=== PATIENT | female | born 1950 | race Caucasian/White ===

== ENCOUNTER 2017-04-18 23:33 | Inpatient (IN) | payer OTHER, MEDICAID ==
[~2017-04-18] VITALS: Ht 162.6 cm; Wt 57.2 kg
--- NOTE | 2017-04-18 23:40 | NUR ---
TO BED 1 BIB PARAMEDICS C/O BLOOD NOTED ON COLOSTOMY NOTED. PT AAOX4 NO ACUTE DISTRESS NOTED, RESP EVEN AND UNLABORED. PLACE PT ON CARDIAC MONITORING, CONTINUOUS POX. ER MD AT BEDSIDE TO EVAL PT WITH ORDERS RECEIVED. SL 20G TO R HAND SOFTWARE PACKAGING ENGINEER. WILL CARRY OUT ORDERS.
[2017-04-19] VITALS (16 sets, daily range): BP systolic 72–96; BP diastolic 35–81
[2017-04-19 00:20] LABS: BASOPHILS % (AUTO) 0.4 % (0.0-2.0); EOSINOPHILS % (AUTO) 1.4 % (0.0-6.0); HEMATOCRIT 30 % (33-45); HEMOGLOBIN 10.2 g/dL (11.5-14.8); LYMPHOCYTES # (AUTO) 1.3 /CMM (0.8-4.8); LYMPHOCYTES % (AUTO) 37.5 % (20.0-44.0); MEAN CORPUSCULAR HEMOGLOBIN 38 PG (26.0-33.0); MEAN CORPUSCULAR HGB CONC 34 g/dl (31.0-36.0); MEAN CORPUSCULAR VOLUME 111 fL (82-100); MONOCYTES # (AUTO) 0.3 /CMM (0.1-1.30); MONOCYTES % (AUTO) 10.4 % (2.0-12.0); NEUTROPHILS # (AUTO) 1.7 /CMM (1.8-8.9); NEUTROPHILS % (AUTO) 50.3 % (43.0-81.0); PLATELET COUNT (AUTO) 122 /CMM (150-450); RDW COEFFICIENT OF VARIATION 15.3 (11.5-15.0); RED BLOOD CELL COUNT(AUTO) 2.71 MIL/uL (4.0-5.2); WHITE BLOOD COUNT (AUTO) 3.4 K/uL (4.3-11.0)
[2017-04-19] MEDS ORDERED: ONDANSETRON HCL/PF 4 MG/2 ML VIAL ONE (00:25)
[2017-04-19 00:26] LABS: INR 1.36 (0.87-1.13); PROTHROMBIN TIME 14.2 SECS (9.5-12.7)
[2017-04-19] MEDS ORDERED: ONDANSETRON HCL/PF 4 MG/2 ML VIAL IV ONE ×2 (00:30)
--- NOTE | 2017-04-19 00:30 | NUR ---
PT AT BEDSIDE.
[2017-04-19] MEDS ORDERED: [UNRECOGNIZED DRUG - REMARK] (00:33)
[2017-04-19] MEDS ORDERED: SPIR25TA PO (00:33)
[2017-04-19] MEDS ORDERED: FURO-145 PO (00:33)
--- NOTE | 2017-04-19 00:37 | NUR ---
PT TRANSPORTED TO RADIOLOGY FOR CT ABD/PELVIS.
[2017-04-19 00:44] LABS: CALCIUM, SERUM 8.5 mg/dL (8.5-10.1); CARBON DIOXIDE 27 mmol/L (21-32); CHLORIDE 99 mmol/L (98-107); CREATININE 0.8 mg/dL (0.6-1.3); GLUCOSE 146 mg/dL (74-106); POTASSIUM 3.9 mmol/L (3.5-5.1); SODIUM SERUM 132 mmol/L (136-145); UREA NITROGEN, BLOOD 13 mg/dL (7-18)
[2017-04-19 00:49] LABS: TROPONIN I < 0.017 ng/mL (0.00-0.056)
--- NOTE | 2017-04-19 00:53 | NUR ---
PT BACK FROM RADIOLOGY. PENDING CT ABD/PELVIS RESULT.
[2017-04-19 00:59] LABS: ALANINE AMINOTRANSFERASE 37 U/L (12-78); ALBUMIN 2.6 g/dL (3.4-5.0); ALKALINE PHOSPHATASE 103 U/L (46-116); ASPARTATE AMINOTRANSFERASE 44 U/L (15-37); BILIRUBIN,DIRECT 0.3 mg/dL (0.0-0.2); BILIRUBIN,TOTAL 0.8 mg/dL (0.2-1.0); LIPASE 193 U/L (73-393); TOTAL PROTEIN, SERUM 6.8 g/dL (6.4-8.2)
[2017-04-19] MEDS ORDERED: IV NS 0.9% 1,000 ML BAG IV ONE ×2 (01:30)
[2017-04-19] MEDS ORDERED: GELATIN SPONGE,ABSORBABLE 1 SPONGE SPONGE TP ONE ×2 (02:03→02:30)
--- NOTE | 2017-04-19 02:10 | NUR ---
REPORT CALLED TO TELE 1 RN. ER MD SPOKE TO DR. MUNOZ REGARDING PT ADMISSION. WILL TRANSPORT PT VIA ACLS PROTOCOL.
[2017-04-19] MEDS ORDERED: PIPERACILLIN /TAZOBACTAM 3.375 G VIAL IV ONE (02:13)
[2017-04-19] MEDS ORDERED: PIPERACILLIN /TAZOBACTAM 3.375 G in IV D5W 50 ML IV ONE (02:30)
[2017-04-19] MEDS ORDERED: ACETAMINOPHEN 325 MG TABLET PO PRN (03:00)
[2017-04-19] MEDS ORDERED: IV D5/ 0.9% NACL 1,000 ML IV PRN (03:00)
[2017-04-19] MEDS ORDERED: ONDANSETRON HCL/PF 4 MG/2 ML VIAL IV PRN (03:00)
[2017-04-19] MEDS ORDERED: ZOLPIDEM TARTRATE 5 MG TABLET PO PRN (03:00)
--- NOTE | 2017-04-19 03:00 | NUR ---
KIMMY/RN NOTES: RECEIVED PT. VIA [facility] TO ROOM # 114-1 W/ ADMITTING DX. OF GI BLEED. A/O X 4. RA SAT 100%. DENIES ANY C/O CHEST PAIN OR ANY DISCOMFORT AT PRESENT. PT. REMAINS NPO STATUS. HAS IVF GOING VIA # 20 PATENT AND INTACT W/ NO S/S OF INFECTION/INFILTRATION NOTED. CONTINENT W/ BPR. HAS COLOSTOMY. CALL LIGHT W/REACH. ALL NEEDS MEET. WILL CONTINUE TO MONITOR. HAS H/H Q 6 HRS.
[2017-04-19] MEDS ORDERED: PANTOPRAZOLE 40 MG VIAL ONE (04:01)
[2017-04-19] MEDS: PANTOPRAZOLE 40 MG VIAL IV SCH ×3 (04:04→16:44)
--- NOTE | 2017-04-19 06:59 | NUR ---
KIMMY/RN NOTES: PT. IN BED SLEEPING W/ RESPIRATION EVEN AND UNLABORED. DENIES ANY PAIN OR DISCOMFORT AT THIS TIME. NOT IN ANY ACUTE DISTRESS NOTED. REPORT GIVEN TO NEXT SHIFT NURSE FOR TSERING.
[2017-04-19] MEDS ORDERED: SOFO400T PO (07:05)
[2017-04-19] MEDS ORDERED: DACL60TA PO (07:05)
--- NOTE | 2017-04-19 07:10 | NUR ---
RN NOTES RECEIVED PATIENT AOX4 , DENIES SOB AND DISCOMFORT AT THIS TIME SPO2 OF 100% VIA RA , SR 85 ON FURNACE REPAIR MECHANIC , COLOSTOMY BAG @ LLQ NOTED WITH BROWNISH YELLOW OUTPUT , NO BLEEDING NOTED , IV OF R HAND # 20 WITH D5NS @ 100ML/HR INFUSING WELL , ALL NEEDS ATTENDED , BED ON LOW AND LOCKED POSITION , SIDE RAILS X2 CALL LIGHT WITHIN REACH , HOB @ 35 , WILL CONTINUE TO MONITOR
[2017-04-19 07:35] LABS: BASOPHILS % (AUTO) 0.4 % (0.0-2.0); EOSINOPHILS # (AUTO) 0.1 /CMM (0.0-0.7); HEMATOCRIT 25 % (33-45); HEMOGLOBIN 8.4 g/dL (11.5-14.8); LYMPHOCYTES # (AUTO) 1.3 /CMM (0.8-4.8); LYMPHOCYTES % (AUTO) 39.1 % (20.0-44.0); MEAN CORPUSCULAR HEMOGLOBIN 38 PG (26.0-33.0); MEAN CORPUSCULAR HGB CONC 34 g/dl (31.0-36.0); MEAN CORPUSCULAR VOLUME 109 fL (82-100); MONOCYTES # (AUTO) 0.3 /CMM (0.1-1.30); NEUTROPHILS # (AUTO) 1.6 /CMM (1.8-8.9); NEUTROPHILS % (AUTO) 48.5 % (43.0-81.0); PLATELET COUNT (AUTO) 94 /CMM (150-450); RED BLOOD CELL COUNT(AUTO) 2.24 MIL/uL (4.0-5.2); WHITE BLOOD COUNT (AUTO) 3.4 K/uL (4.3-11.0)
[2017-04-19 07:45] LABS: CALCIUM, SERUM 7.9 mg/dL (8.5-10.1); CREATININE 0.6 mg/dL (0.6-1.3); POTASSIUM 3.9 mmol/L (3.5-5.1)
[2017-04-19 07:52] LABS: INR 1.35 (0.87-1.13); PROTHROMBIN TIME 14.1 SECS (9.5-12.7)
--- NOTE | 2017-04-19 08:27 | NUR ---
RN NOTES DR MUNOZ AT BEDSIDE, SEEN AND EVALUATED THE PATIENT , DISCUSSED LABS , BP OF 88/40 , AFEBRILE , NO ACTIVE BLEEDING AT COLOSTOMY BAG , PER MD GIVE 2 UNITS PRBC AND START PT ON REGULAR DIET , DC H/H Q6 AND REPEAT H/H AFTER 2 UNITS PRBC AND CALL HIM FOR THE RESULT , MAY BE DISCHARGE TO DAY DEPENDS ON H/H LEVEL
--- NOTE | 2017-04-19 08:28 | NUR ---
RN NOTES 2 UNITS PRBC ORDERED PER STANDING ORDER , VERIFIED BLOOD TRANSFUSION CONSENT ON CASI CHART , PT SIGNED BT CONSENT , WILL CONTINUE TO MONITOR
--- NOTE | 2017-04-19 08:29 | NUR ---
RN NOTES DR MUNOZ SPOKE TO DR WELLS REGARDING PLAN FO CARE . NO PLAN FOR EGD
[2017-04-19 08:57] LABS: LYMPHOCYTES % (MANUAL) 42 % (16-48); MONOCYTES % (MANUAL) 7 % (0-11.0); NEUTROPHILS % (MANUAL) 51 (42-76)
[2017-04-19] MEDS ORDERED: HYDROMORPHONE 1 MG/1 ML DISP.SYRIN ONE (09:02)
[2017-04-19] MEDS: HYDROMORPHONE INJ 2 MG/ML DISP.SYRIN IV PRN ×2 (09:04→21:45)
--- NOTE | 2017-04-19 11:31 | NUR ---
RN NOTES PT STABLE PRIOR TO BT , BP OF 72/42 , AFEBRILE , VERIFIED 1 UNIT PRBC WITH ANOTHER RN ALBERT, TAMARA CONSENT SIGNED , WILL MONITOR PT FOR ANY TRANSFUSION REACTION AFTER 15 MINUTES
--- NOTE | 2017-04-19 11:44 | NUR ---
RN NOTES PT STABLE AFTER 15 MINUTES INITIATING BLOOD TRANSFUSION , NO TRANSFUSION REACTION NOTED , DENIES ANY DISCOMFORT AND SOB AT THIS TIME , WILL CONTINUE TO MONITOR
--- NOTE | 2017-04-19 13:59 | NUR ---
RN NOTES SECOND UNIT OF PRBC GIVEN , PT IS STABLE AT THIS TIME , V/S STABLE , VERIFIED BLOOD WITH BARRY RN , WILL CONTINUE TO MONITOR
--- NOTE | 2017-04-19 14:15 | NUR ---
RN NOTES PT STABLE POST 15 MINUTES OF SECOND PRBC , NO TRANSFUSION REACTION NOTED , V/S LELA , WILL CONTINUE TO MONITOR
[2017-04-19 17:31] LABS: HEMOGLOBIN 9.8 g/dL (11.5-14.8)
--- NOTE | 2017-04-19 19:11 | NUR ---
RN NOTES SPOKE WITH DR MELENDEZ AND DR MUNOZ , DISCUSSED THE PT WAS STABLE FOR DISCHARGE , UPON REMOVING COLOSTOMY BAG , PT STARTED BLEEDING WITH SMALL AMOUNT OF BLOOD , APPLIED PRESSURE FOR AT LEAST 15-20 MINUTES, BLEEDING STOPPED AND APPLIED COLOSTOMY BAG , WILL HOLD DISCHARGE FOR NOW , BOTH MD AGREED TO HOLD DC , DR MELENDEZ WILL SEE THE PT AT MIDNIGHT
--- NOTE | 2017-04-19 19:30 | NUR ---
RN NOTES REPORT GIVEN TO Sharyn HARDIN/U MEDICATION RECON TO BE REVIEWED AND CONTINUED BY , PT IS TAKING ANTI VIRAL DRUG FOR HEP C , COLOSTOMY SITE NO BLEEDING NOTED , PT DENIES DIZZINESS AND DISCOMFIT AT THIS TIME .
--- NOTE | 2017-04-19 20:22 | NUR ---
RN MS INITIAL NOTES RECEIVED PATIENT AOX4 , DENIES SOB AND DISCOMFORT AT THIS TIME SPO2 OF 100% VIA RA , SR 62 ON RESTAURANT HOST , COLOSTOMY BAG @ LLQ NOTED WITH BROWNISH YELLOW OUTPUT , NO BLEEDING NOTED , ENDORSED BY AM SHIFT WITH EPISODE OF BLEEDING IN THE COLOSTOMY, WILL CONT TO MONITOR, MD TO SEE PT PER AM NURSE BY MD NIGHT. IV OF R HAND # 20 IV D5NS @ 100ML/HR DC , BP TRENDING ON LOW , BUT ENDORSED THAT IT IS NORMAL FOR PT.ALL NEEDS ATTENDED , BED ON LOW AND LOCKED POSITION , SIDE RAILS X2 CALL LIGHT WITHIN REACH , HOB @ 35 , WILL CONTINUE TO MONITOR
--- NOTE | 2017-04-19 23:20 | NUR ---
PT SEEN BY DR ALIYAH MELENDEZ ASSESSED SITE [facility] [place] FOR DC IF H&H NORMAL.
--- NOTE | 2017-04-19 23:51 | NUR ---
DR MUNOZ CALLED TO F/U ON DR ALIYAH MELENDEZ VISIT, EXPLAINED MD DUNBAR TO DC PT IN AM IF H&H OK. REQUESTED TO ENDORSE PT FOR DC WITH FEROUS SULFATE 325 MG 1 TAB PO BID, SUPPLEMENT FOR ANEMIA.
[2017-04-20] VITALS: BP 90/50
[2017-04-20 00:53] LABS: HEMOGLOBIN 10.6 g/dL (11.5-14.8)
[2017-04-20 04:00] VITALS: BP 78/48
--- NOTE | 2017-04-20 06:14 | NUR ---
RN MS CLOSING NOTES PT STABLE THROUGH SHIFT, DR ALEXANDER DUNBAR FOR DC IF AM H&H OK. MIDNIGHT H&H 10.6, WILL ENDORSE FOR AM NURSE TO F/U. PT FOR HIDA SCAN IN AM, WELL POSSIBLE EGD AND COLONOSCOPY. ALL PT NEEDS MET, CALL LIGHT WITH REACH.
[2017-04-20 07:27] LABS: BASOPHILS % (AUTO) 1.2 % (0.0-2.0); EOSINOPHILS # (AUTO) 0.1 /CMM (0.0-0.7); EOSINOPHILS % (AUTO) 2.1 % (0.0-6.0); HEMATOCRIT 32 % (33-45); HEMOGLOBIN 10.7 g/dL (11.5-14.8); LYMPHOCYTES # (AUTO) 1.5 /CMM (0.8-4.8); LYMPHOCYTES % (AUTO) 45.4 % (20.0-44.0); MEAN CORPUSCULAR HEMOGLOBIN 36 PG (26.0-33.0); MEAN CORPUSCULAR HGB CONC 34 g/dl (31.0-36.0); MEAN CORPUSCULAR VOLUME 105 fL (82-100); MONOCYTES # (AUTO) 0.3 /CMM (0.1-1.30); MONOCYTES % (AUTO) 8.8 % (2.0-12.0); NEUTROPHILS # (AUTO) 1.4 /CMM (1.8-8.9); NEUTROPHILS % (AUTO) 42.5 % (43.0-81.0); PLATELET COUNT (AUTO) 91 /CMM (150-450); RED BLOOD CELL COUNT(AUTO) 3.01 MIL/uL (4.0-5.2); WHITE BLOOD COUNT (AUTO) 3.2 K/uL (4.3-11.0)
[2017-04-20 07:49] LABS: CALCIUM, SERUM 8.2 mg/dL (8.5-10.1); CREATININE 0.7 mg/dL (0.6-1.3); MAGNESIUM 1.7 mg/dL (1.8-2.4); PHOSPHORUS 3.2 mg/dL (2.5-4.9); POTASSIUM 3.9 mmol/L (3.5-5.1)
[2017-04-20 08:00] VITALS: BP 87/51
[2017-04-20 08:34] LABS: EOSINOPHILS % (MANUAL) 2 % (0-4); LYMPHOCYTES % (MANUAL) 41 % (16-48); MONOCYTES % (MANUAL) 6 % (0-11.0); NEUTROPHILS % (MANUAL) 51 (42-76)
[2017-04-20] MEDS: PANTOPRAZOLE 40 MG VIAL IV SCH (08:38)
[2017-04-20] MEDS ORDERED: Magnesium 1GM/D5W 100ML PREMIX 100 ML IV SCH (09:38)
--- NOTE | 2017-04-20 10:00 | NUR ---
RN NOTE PT DISCHARGED HOME WITH VIA OWN TRANSPORTATION, DR MUNOZ NOTIFIED ABOUT HEMOGLOBIN LEVEL AND NEED TO FOLLOW UP WITH DR MELENDEZ IS EMPHASIZED REGARDING COLOSTOMY CARE AND GI CONSULTATION FOR COLONOSCOPY. EXIT CARE DONE, PT REFUSED VACCINATION. DISCHARGE PAPERS SIGNED, INSTRUCTIONS GIVEN REGARDING IRON SUPPLEMENT RECOMMENDED BY DR MUNOZ. TEACHING DONE TO PT, PATIENT VERBALIZED UNDERSTANDING. PT LEFT IN STABLE CONDITION.
== END 2017-04-20 10:21 | disposition home or self-care (01) | DRG 394 ==
LOC: ER 23:35 → TELE1 04-19 02:29 → TELE-TD 04-19 02:57 → MEDSG1 04-19 11:21
PROVIDERS: ADMIT Internal Medicine; ATTEND Internal Medicine
PROC: 30233N1 Transfusion of Nonautologous Red Blood Cells into Peripheral Vein, Percutaneous Approach (ICD-10-PCS; principal; 2017-04-19)
DX: K94.01 Colostomy hemorrhage (principal); D62 Acute posthemorrhagic anemia; I95.89 Other hypotension; R18.8 Other ascites; K80.10 Calculus of gallbladder with chronic cholecystitis without obstruction; E44.1 Mild protein-calorie malnutrition; K74.60 Unspecified cirrhosis of liver; Y83.3 Surgical operation with formation of external stoma as the cause of abnormal reaction of the patient, or of later complication, without mention of misadventure at the time of the procedure; Y82.9 Unspecified medical devices associated with adverse incidents; Y92.009 Unspecified place in unspecified non-institutional (private) residence as the place of occurrence of the external cause; B19.20 Unspecified viral hepatitis C without hepatic coma; Z79.899 Other long term (current) drug therapy; D53.9 Nutritional anemia, unspecified; Z68.21 Body mass index [BMI] 21.0-21.9, adult
CPT/HCPCS: 36415; 80048-TC; 80076-TC; 83690-TC; 83735-TC; 84100-TC; 84484-TC; 85025-TC; 85027-TC; 85610-TC; 85730-TC; 86850-TC; 86921-TC; 87081-TC; A4606; A6402; C9113; J1170; J2405; J2543; J7030; J7060; P9016-BL; Z7610

== ENCOUNTER 2017-05-22 18:09 | Inpatient (IN) | payer OTHER, MEDICAID ==
[~2017-05-22] VITALS: Ht 162.6 cm; Wt 61.7 kg
[~2017-05-22 18:09] MED LIST: DACL60TA PO; FURO-145 PO; SOFO400T PO; SPIR25TA PO
--- NOTE | 2017-05-22 20:33 | NUR ---
PT RECIEVED FROM [id number] FROM HOME C/O ABDOMINAL PAIN/DISTENTION R/T ASCITES/SURGICAL INCISION 12/26 NON RADIATING. NO SOB NOTED AT THIS TIME. VSS. NAD. A/OX4 ABLE TO MAKE NEEDS KNOWN. WILL CONTINUE TO MONITOR FOR ANY CHANGES.
[2017-05-22] MEDS ORDERED: ONDANSETRON HCL/PF 4 MG/2 ML VIAL ONE (20:57)
[2017-05-22] MEDS ORDERED: MORPHINE SULFATE INJ 4 MG/ML DISP.SYRIN ONE (20:58)
[2017-05-22] MEDS ORDERED: ONDANSETRON HCL/PF 4 MG/2 ML VIAL IVP ONE (21:00)
[2017-05-22] MEDS ORDERED: MORPHINE SULFATE INJ 2 MG/ML DISP.SYRIN IV ONE (21:00)
--- NOTE | 2017-05-22 21:00 | NUR ---
PT TRIAGED AND TAKEN TO ROOM #11. PT PLACED ON THE MONITOR AND CONTINUOUS PULSE OX. DR. DAO IS AT THE BEDSIDE. PT IS AA&O X4. RESP EVEN AND UNLABORED. PT IS LYING SUPINE. PT'S IS AT THE BEDSIDE. PT HAD COLON RESECTION LAST WEEK AT [facility]. PT IS C/O ASCITES. PT HAS HX OF HEP C.
--- NOTE | 2017-05-22 21:22 | NUR ---
AUTOMOTIVE TECHNICIAN IS AT THE BEDSIDE FOR BLOOD DRAW. PT STATED THAT WE CAN NOT DRAW BLOOD FROM THE PICC LINE.
--- NOTE | 2017-05-22 21:22 | NUR ---
XRAY IN PROGRESS AT THE BEDSIDE.
--- NOTE | 2017-05-22 21:37 | NUR ---
PT LEFT FOR CT VIA RNEY
--- NOTE | 2017-05-22 21:41 | NUR ---
PT RETURNED FROM CT.
[2017-05-22 21:42] LABS: BASOPHILS # (AUTO) 0.5 /CMM (0.0-0.2); EOSINOPHILS # (AUTO) 0.1 /CMM (0.0-0.7); EOSINOPHILS % (AUTO) 0.9 % (0.0-6.0); HEMATOCRIT 30 % (33-45); HEMOGLOBIN 10.7 g/dL (11.5-14.8); LYMPHOCYTES % (AUTO) 10.1 % (20.0-44.0); MEAN CORPUSCULAR HEMOGLOBIN 33 PG (26.0-33.0); MEAN CORPUSCULAR HGB CONC 35 g/dl (31.0-36.0); MEAN CORPUSCULAR VOLUME 93 fL (82-100); MONOCYTES # (AUTO) 1.6 /CMM (0.1-1.30); MONOCYTES % (AUTO) 15.6 % (2.0-12.0); NEUTROPHILS # (AUTO) 6.7 /CMM (1.8-8.9); NEUTROPHILS % (AUTO) 68.1 % (43.0-81.0); PLATELET COUNT (AUTO) 144 /CMM (150-450); RDW COEFFICIENT OF VARIATION 21.3 (11.5-15.0); RED BLOOD CELL COUNT(AUTO) 3.27 MIL/uL (4.0-5.2); WHITE BLOOD COUNT (AUTO) 9.9 K/uL (4.3-11.0)
[2017-05-22 21:50] LABS: CALCIUM, SERUM 8.6 mg/dL (8.5-10.1); CARBON DIOXIDE 23 mmol/L (21-32); CHLORIDE 96 mmol/L (98-107); CREATININE 1.3 mg/dL (0.6-1.3); GLUCOSE 117 mg/dL (74-106); INR 1.38 (0.87-1.13); PROTHROMBIN TIME 14.4 SECS (9.5-12.7); SODIUM SERUM 127 mmol/L (136-145); UREA NITROGEN, BLOOD 21 mg/dL (7-18)
[2017-05-22 21:51] LABS: BASOPHILS % (AUTO) 5.3 % (0.0-2.0)
[2017-05-22 21:55] LABS: ALANINE AMINOTRANSFERASE 15 U/L (12-78); ALBUMIN 2.6 g/dL (3.4-5.0); ALKALINE PHOSPHATASE 80 U/L (46-116); ASPARTATE AMINOTRANSFERASE 23 U/L (15-37); BILIRUBIN,DIRECT 0.8 mg/dL (0.0-0.2); BILIRUBIN,TOTAL 2.2 mg/dL (0.2-1.0); LIPASE 431 U/L (73-393); TOTAL PROTEIN, SERUM 6.2 g/dL (6.4-8.2)
[2017-05-22 21:57] LABS: TROPONIN I < 0.017 ng/mL (0.00-0.056)
[2017-05-22 22:07] LABS: LYMPHOCYTES % (MANUAL) 12 % (16-48); MONOCYTES % (MANUAL) 14 % (0-11.0); NEUTROPHILS % (MANUAL) 74 (42-76)
--- NOTE | 2017-05-22 22:30 | NUR ---
PT APPEARS TO BE RESTING COMFORTABLY. PT C/O OF THE BP CUFF AND ASKED THAT WE TAKE IT OFF IT WAS IRRITATING HER ARM. PT HAS RED LUMP IN THE AC. WARM PACK GIVEN.
--- NOTE | 2017-05-23 00:25 | NUR ---
CALLING REPORT TO MS. WILL CALL BACK IN 5 MINS.
--- NOTE | 2017-05-23 00:44 | NUR ---
REPORT GIVEN TO MATIAS BALTAZAR
[2017-05-23] MEDS ORDERED: HYDROMORPHONE 1 MG/1 ML DISP.SYRIN IV PRN (01:30)
[2017-05-23] MEDS ORDERED: Potassium Chloride 20 MEQ in IV D5/ 0.9% NACL 1,000 ML IV PRN (01:30)
[2017-05-23 01:57] VITALS: BP 100/66
[2017-05-23] MEDS ORDERED: PIPERACILLIN /TAZOBACTAM 3.375 G VIAL IV ONE (02:10)
[2017-05-23] MEDS ORDERED: PANTOPRAZOLE 40 MG VIAL ONE (02:11)
[2017-05-23] MEDS ORDERED: ONDANSETRON HCL/PF 4 MG/2 ML VIAL ONE (02:32)
[2017-05-23] MEDS ORDERED: HYDROMORPHONE 1 MG/1 ML DISP.SYRIN ONE (02:32)
[2017-05-23] MEDS: PANTOPRAZOLE 40 MG VIAL IV SCH ×2 (02:42→09:21)
[2017-05-23] MEDS: ONDANSETRON HCL/PF 4 MG/2 ML VIAL IV PRN ×2 (02:44→10:18)
[2017-05-23] MEDS: PIPERACILLIN /TAZOBACTAM 3.375 G in IV D5W 50 ML IV SCH ×2 (02:44→05:00)
--- NOTE | 2017-05-23 03:30 | NUR ---
SKATE MAKER NOTES PT RECEIVED FROM THE ER DX ASCITES R/T TO ABD RESECTION. PT NPO,A&0X4, PT AMBULATE WITH ASSISTANCE, ADMISSION COMPLETED, PLAN OF CARE DISCUSES WITH PT. ALL SAFETY MEASURE TAKEN ALL NEED MET. WILL ENDORSE TO AM MATIAS.
[2017-05-23 04:00] VITALS: BP_SYST 85; BP_SYST 91; BP_DIAS 56; BP_DIAS 58
[2017-05-23 08:00] VITALS: BP 88/59
[2017-05-23] MEDS: HYDROMORPHONE INJ 2 MG/ML DISP.SYRIN IV PRN ×2 (10:16→21:00)
[2017-05-23 12:00] VITALS: BP 132/78
[2017-05-23] MEDS ORDERED: PIPERACILLIN /TAZOBACTAM 2.25 G in IV NS 0.9% 50 ML IV SCH (12:00)
[2017-05-23] MEDS: FUROSEMIDE 40 MG/4 ML VIAL IV SCH ×2 (14:15→17:07)
[2017-05-23] MEDS: PIPERACILLIN /TAZOBACTAM 2.25 G in IV D5W 50 ML IV SCH (17:07)
[2017-05-23 17:30] VITALS: BP 85/56
[2017-05-23 20:00] VITALS: BP 86/58
[2017-05-24] MEDS: PIPERACILLIN /TAZOBACTAM 2.25 G in IV D5W 50 ML IV SCH ×5 (00:15→23:19)
[2017-05-24 04:00] VITALS: BP 111/63
[2017-05-24] MEDS: HYDROMORPHONE INJ 2 MG/ML DISP.SYRIN IV PRN ×3 (04:14→18:05)
[2017-05-24 08:00] VITALS: BP 100/60
--- NOTE | 2017-05-24 08:00 | NUR ---
AM RN NOTE Received patient awake, A/O X4 verbally responsive. No acute distress noted. Resp even and non-labored. PICC line intact and patent and continue on IV fluids. Will continue to monitor.
[2017-05-24] MEDS: FUROSEMIDE 40 MG/4 ML VIAL IV SCH (08:04)
[2017-05-24] MEDS: PANTOPRAZOLE 40 MG VIAL IV SCH (08:05)
[2017-05-24] MEDS: ONDANSETRON HCL/PF 4 MG/2 ML VIAL IV PRN (11:05)
[2017-05-24] MEDS: SPIRONOLACTONE 25 MG TABLET PO SCH (12:16)
[2017-05-24] MEDS: FUROSEMIDE 40 MG TABLET PO SCH (12:16)
[2017-05-24 12:18] LABS: BASOPHILS # (AUTO) 0.1 /CMM (0.0-0.2); BASOPHILS % (AUTO) 0.5 % (0.0-2.0); EOSINOPHILS # (AUTO) 0.1 /CMM (0.0-0.7); EOSINOPHILS % (AUTO) 0.6 % (0.0-6.0); HEMATOCRIT 33 % (33-45); HEMOGLOBIN 10.8 g/dL (11.5-14.8); LYMPHOCYTES # (AUTO) 0.6 /CMM (0.8-4.8); LYMPHOCYTES % (AUTO) 4.8 % (20.0-44.0); MEAN CORPUSCULAR HEMOGLOBIN 33 PG (26.0-33.0); MEAN CORPUSCULAR HGB CONC 33 g/dl (31.0-36.0); MEAN CORPUSCULAR VOLUME 98 fL (82-100); MONOCYTES # (AUTO) 2.1 /CMM (0.1-1.30); MONOCYTES % (AUTO) 15.8 % (2.0-12.0); NEUTROPHILS # (AUTO) 10.7 /CMM (1.8-8.9); NEUTROPHILS % (AUTO) 78.3 % (43.0-81.0); PLATELET COUNT (AUTO) 176 /CMM (150-450); RDW COEFFICIENT OF VARIATION 22.4 (11.5-15.0); RED BLOOD CELL COUNT(AUTO) 3.34 MIL/uL (4.0-5.2); WHITE BLOOD COUNT (AUTO) 13.6 K/uL (4.3-11.0)
[2017-05-24 12:46] LABS: BAND % (MANUAL) 1 % (0.0-5.0); LYMPHOCYTES % (MANUAL) 3 % (16-48); MONOCYTES % (MANUAL) 11 % (0-11.0); NEUTROPHILS % (MANUAL) 85 (42-76)
[2017-05-24 12:49] LABS: BILIRUBIN,TOTAL 2.4 mg/dL (0.2-1.0); CALCIUM, SERUM 8.2 mg/dL (8.5-10.1); CREATININE 1.5 mg/dL (0.6-1.3); POTASSIUM 4.8 mmol/L (3.5-5.1); TOTAL PROTEIN, SERUM 5.4 g/dL (6.4-8.2)
[2017-05-24 16:00] VITALS: BP 99/57
--- NOTE | 2017-05-24 18:37 | NUR ---
AM RN NOTE Patient awake, resting at this time, no acute distress noted. PRN pain meds with effective results. IV site intact. Will continue to monitor and endorse care to next shift.
--- NOTE | 2017-05-24 19:30 | NUR ---
RN NOTE; RECEIVED PT IN BED AWAKE AND ALERT. BREATHING EVENLY. NO SON. NAD. SKIN WARM AND DRY. NO C/O PAIN OR DISCOMFORT. ABD SX SITES W/ INTACT ANGEL LUIS. NO S/S OF REOPENING OR INFECTION. RLQ PARACENTESIS SITE W/ NO S/S OF INFX , NO DISCHARGES, NEEDS ATTENDED .ASSISTED W/ ADLS. CALL LIGHT WITHIN REACH. WILL CONT TO MONITOR.
--- NOTE | 2017-05-24 19:45 | NUR ---
RN NOTE; RECEIVED PT IN BED AWAKE AND ALERT. BREATHING EVENLY. NO SOB. NAD. SKIN WARM AND DRY. NO C/O PAIN OR DISCOMFORT. ON ONGOING IVF HYDRATION ERASTO WELL. IV SITE INTACT AND PATENT, NEEDS ATTENDED .ASSISTED W/ ADLS. CALL LIGHT WITHIN REACH. WILL CONT TO MONITOR. Addendum: 05/25/17 at 0229 by JOHANA FLYNN RN WRONG PT DOCUMENTATION
[2017-05-24 20:00] VITALS: BP 87/58
[2017-05-25] MEDS: PIPERACILLIN /TAZOBACTAM 2.25 G in IV D5W 50 ML IV SCH (05:20)
--- NOTE | 2017-05-25 06:33 | NUR ---
RN NOTE, PT IN BED RESTING COMFORTABLY. NO ACUTE EVENT DURING THE NIGHT, NO C/O PAIN OR DISCOMFORT. HAD X1 BM. SX SITES INTACT. NEEDS ATTENDED . ASSISTED W/ ADLS. CALL LIGHT WITHIN REACH. WILL CONT TO MONITOR AND WILL ENDORSE TO AM SHIFT FOR TSERING.
[2017-05-25 07:06] LABS: CALCIUM, SERUM 8.4 mg/dL (8.5-10.1); CREATININE 1.7 mg/dL (0.6-1.3); POTASSIUM 4.6 mmol/L (3.5-5.1)
--- NOTE | 2017-05-25 07:30 | NUR ---
RN MS NOTES PT IN BED, AWAKE, ALERT AND ORIENTED, NO COMPLAINT OF PAIN, RESPIRATIONS NORMAL AND NOT LABORED, CALL LIGHT WITHIN REACH.
[2017-05-25 07:44] LABS: BASOPHILS % (AUTO) 0.1 % (0.0-2.0); HEMATOCRIT 32 % (33-45); HEMOGLOBIN 10.8 g/dL (11.5-14.8); LYMPHOCYTES # (AUTO) 1.1 /CMM (0.8-4.8); LYMPHOCYTES % (AUTO) 7.5 % (20.0-44.0); MEAN CORPUSCULAR HEMOGLOBIN 33 PG (26.0-33.0); MEAN CORPUSCULAR HGB CONC 34 g/dl (31.0-36.0); MEAN CORPUSCULAR VOLUME 97 fL (82-100); MONOCYTES # (AUTO) 1.9 /CMM (0.1-1.30); MONOCYTES % (AUTO) 12.8 % (2.0-12.0); NEUTROPHILS # (AUTO) 11.5 /CMM (1.8-8.9); NEUTROPHILS % (AUTO) 79.6 % (43.0-81.0); PLATELET COUNT (AUTO) 183 /CMM (150-450); RDW COEFFICIENT OF VARIATION 22.3 (11.5-15.0); RED BLOOD CELL COUNT(AUTO) 3.28 MIL/uL (4.0-5.2); WHITE BLOOD COUNT (AUTO) 14.4 K/uL (4.3-11.0)
[2017-05-25 08:00] VITALS: BP 89/48
[2017-05-25] MEDS: SPIRONOLACTONE 25 MG TABLET PO SCH (09:00)
[2017-05-25] MEDS: FUROSEMIDE 40 MG TABLET PO SCH (09:00)
[2017-05-25] MEDS: PANTOPRAZOLE 40 MG VIAL IV SCH (09:07)
--- NOTE | 2017-05-25 11:08 | NUR ---
RN MS NOTES PT IN BED, DENIES PAIN OR ANY DISCOMFORT, BREATHING PATTERN NORMAL AND NOT LABORED, SEEN BY DR. MUNOZ, DISCHARGE ORDER GIVEN, DISCHARGE INSTRUCTIONS PROVIDED TO PT, PT TO CONTINUE ROCEPHIN IG IV DAILY FOR 8 DAYS, CONTINUE ALL HOME MEDS EXCEPT LASIX, PT VERBALIZED UNDERSTANDING, PT TO SEE HER PCP AND TO FOLLOW UP WITH DR. MELENDEZ, PT VERBALIZED UNDERSTANDING, PT REFUSED BODY CHECK AND PHOTOS ON DISCHARGE, BELONGINGS ACCOUNTED FOR, ASSISTED TO WHEELCHAIR, ASSISTED TO HOSPITAL LOBBY, PICKED UP BY FRIEND GUERO, LEFT IN STABLE CONDITION.
[2017-05-25 13:38] LABS: LYMPHOCYTES % (MANUAL) 8 % (16-48); NEUTROPHILS % (MANUAL) 81 (42-76)
[2017-05-25 13:39] LABS: EOSINOPHILS % (MANUAL) 1 % (0-4); MONOCYTES % (MANUAL) 10 % (0-11.0)
== END 2017-05-25 11:15 | disposition home or self-care (01) | DRG 371 ==
LOC: ER 18:18 → MEDSG1 05-23 01:00
PROVIDERS: ADMIT Internal Medicine; ATTEND Internal Medicine
PROC: 02HV33Z Insertion of Infusion Device into Superior Vena Cava, Percutaneous Approach (ICD-10-PCS; principal; 2017-05-23)
PROC: 0W9G3ZZ Drainage of Peritoneal Cavity, Percutaneous Approach (ICD-10-PCS; 2017-05-23)
DX: K65.9 Peritonitis, unspecified (principal); K85.90 Acute pancreatitis without necrosis or infection, unspecified; R18.8 Other ascites; K56.7 Ileus, unspecified; E87.1 Hypo-osmolality and hyponatremia; K44.9 Diaphragmatic hernia without obstruction or gangrene; B19.20 Unspecified viral hepatitis C without hepatic coma; Z93.3 Colostomy status; Z79.899 Other long term (current) drug therapy; D64.9 Anemia, unspecified; Z90.49 Acquired absence of other specified parts of digestive tract
CPT/HCPCS: 36415; 71045-TC; 76942-TC; 80048-TC; 80053-TC; 80076-TC; 82040-TC; 83690-TC; 84484-TC; 85025-TC; 85730-TC; 87070-TC; 88305-TC; 88312-TC; 89051-TC; A4216; C9113; J1170; J1940; J2270; J2405; J2543; J3480; J7042; J7050; J7060; Z7610